=== PATIENT | male | born 1990 | race Two or more races ===

== ENCOUNTER 2025-02-15 05:29 | Emergency (ER) | payer BC, SELFPAY ==
[2025-02-15 05:30] VITALS: BMI 28.3
[2025-02-15 05:38] VITALS: BP 144/97; PULSE 68; RESP 18; TEMP 36.8; O2SAT 99
--- NOTE | 2025-02-15 05:46 | XR_ITS ---
Examination: CT abdomen and pelvis without contrast. Coronal 3-D reconstructions. Sagittal 2-D reconstructions. Date and time of exam:MRI 2024, 0642 hours Comparison December 22, 2020 INDICATIONS: Onset left-sided abdominal pain today CTDI: vol (mGy): 7.4 DLP: (mGycm): 414 Technique: Axial images of the abdomen have been obtained, 3 mm slice thickness Intravenous contrast material has not been administered. Low dose protocols were performed. One or more of the following dose reduction techniques were used; automated exposure control, adjustment of the mA and/or KV according to patient size, use of iterative reconstruction technique. Findings: No focal liver or splenic lesions No gallstones No pancreatic or adrenal mass 2 mm left renal calculus Minimal left hydronephrosis secondary to 2 mm mid left ureteral calculus image 121 Absent appendix No bowel obstruction No bladder mass The osseous structures are intact. Impression : Minimal left hydronephrosis secondary to 2 mm mid left ureteral calculus
--- NOTE | 2025-02-15 05:46 | XR_ITS ---
Examination: Testicular sonography complete TECHNIQUE: Grayscale sonographic images Smith, assessment arterial and portal venous outflow, Doppler spectral analysis color flow analysis Date and time: February 15, 2025, 0726 hours INDICATIONS: Onset left testicular pain and nausea beginning 4.5 hours ago FINDINGS: Right testis is 4.9 cm epididymis 16 mm 8 mm right epididymal cyst. Arterial flow to the testicle. No testicular mass Left testis 5.0 cm epididymis 17 mm Mild varicocele. Arterial flow to the testicle. No testicular Mass. Mild left hydrocele Bilateral testicular microlithiasis IMPRESSION: No testicular torsion or testicular Mass. Small benign right epididymal cyst. Mild left varicocele
--- NOTE | 2025-02-15 05:47 | PD.EDRME ---
Rapid Medical Screening Exam RME Arrival date/time: 02/15/25 05:29 35M with no significant PMH presents to ED with several hours of L flank/testicular pain and N/V. Chief Complaint: Abdominal Pain Vital signs: Vital Signs Temperature 98.2 F 02/15/25 05:38 Pulse Rate 68 02/15/25 05:38 Respiratory Rate 18 02/15/25 05:38 Blood Pressure 144/97 H 02/15/25 05:38 Pulse Oximetry (%) 99 02/15/25 05:38 Oxygen Delivery Method Room Air 02/15/25 05:38
[2025-02-15] MEDS: KETOROLAC INJ 60 MG/2 ML VIAL IM (06:02)
[2025-02-15] MEDS: ONDANSETRON ODT 4 MG TABRAP PO (06:02)
[2025-02-15 06:37] LABS: Collection Type, Urine Clean Catch
[2025-02-15 06:55] LABS: Basophils # (Auto) 0.1 Thou/mm3 (0.0-0.2); Basophils % (Auto) 0 % (0-2.5); Eosinophils # (Auto) 0.4 Thou/mm3 (0.0-0.5); Eosinophils % (Auto) 4 % (0-10); Hematocrit 47.0 % (41.0-53.0); Hemoglobin 17.2 g/dL (13.5-16.0); Immature Granulocytes Auto 0.06 Thou/mm3 (0.00-0.00); Lymphocytes # (Auto) 2.5 Thou/mm3 (1.0-4.8); Lymphocytes % (Auto) 22 % (10-50); Mean Corpuscular HGB Conc 36.6 g/dl (31.0-37.0); Mean Corpuscular Hemoglobin 31.6 pg (25.0-35.0); Mean Corpuscular Volume 86 fL (80-100); Monocytes # (Auto) 0.7 Thou/mm3 (0.0-0.8); Monocytes % (Auto) 7 % (0-12); Neutrophils # (Auto) 7.5 Thou/mm3 (1.8-7.7); Neutrophils % (Auto) 67 % (37-80); Nucleated Red Blood Cell # 0.00 Thou/mm3 (0.00-0.00); Nucleated Red Blood Cell % 0 /100 WBC (0); Platelet Count 240 Thou/mm3 (140-440); RDW Standard Deviation 39.3 fL (35.1-43.9); Red Blood Count 5.44 Miln/mm3 (4.50-5.90); White Blood Count 11.3 Thou/mm3 (3.8-10.6)
[2025-02-15 07:08] LABS: Alanine Aminotransferase 48 U/L (10-49); Albumin, Serum 4.8 gm/dL (3.5-5.0); Albumin/Globulin Ratio 1.7 (1.2-2.2); Alkaline Phosphatase 86 U/L (46-116); Anion Gap 11 (7-16); Aspartate Amino Transferase 29 U/L (0-34); BUN/Creatinine Ratio 10 Ratio (12-20); Bilirubin,Total 0.9 mg/dL (0.3-1.2); Blood Urea Nitrogen 13 mg/dL (9-23); Calcium 9.6 mg/dL (8.3-10.6); Calcium (Corrected) 9.6 mg/dL (8.5-10.1); Carbon Dioxide 23.6 mMol/L (20.0-31.0); Chloride 106 mMol/L (98-107); Creatinine (Component) 1.3 mg/dL (0.6-1.3); Estimated Creatinine Clearance 75.3 mL/min (>60); Globulin 2.9 gm/dL (2.3-3.5); Glucose 111 mg/dL (74-106); Lipase 27 U/L (12-53); Osmolality,Calculated 282 (275-295); Potassium 3.9 mMol/L (3.4-5.1); Sodium 141 mMol/L (136-145); Total Protein 7.7 gm/dL (5.7-8.2); eGFR > 60 See Note
[2025-02-15 07:10] LABS: Amorphous Crystals,Urine Present (Absent); Bilirubin,Urine Negative (Negative); Blood,Urine 3+ (Negative); Clarity,Urine Turbid (Clear/Hazy); Culture Indicated,Urine Not Indicated; Glucose, Urine Negative (Negative); Ketones,Urine Negative (Negative); Leukocyte Esterase,Urine Negative (Negative); Nitrite,Urine Negative (Negative); PH,Urine 6.0 (5.0-7.0); Protein,Urine 2+ (Neg - Trace); RBC,Urine 543 /hpf (0-3); Specific Gravity,Urine 1.039 (1.001-1.035); Squamous Epithelial Cell,Urine < 1 /hpf (0-5); Urobilinogen,Urine 3.0 mg/dL (0.0-1.0); WBC,Urine 5 /hpf (0-5)
[2025-02-15 07:23] LABS: Amphetamine/Methamp Scrn,U Negative (Negative); Barbiturate Screen,Urine Negative (Negative); Benzodiazepines Screen,Urine Negative (Negative); Benzoylecgonine Screen, Ur Negative (Negative); Budding Yeast,Urine Present; Color,Urine Lt Orange (Lt Yel-Yel); Fentanyl Screen,Urine Negative (Negative); Opiate Screen,Urine Negative (Negative); THC Screen,Urine Positive (Negative)
--- NOTE | 2025-02-15 07:39 | EDNOTE_ITS ---
ED Abdominal Pain RME/HPI General Chief Complaint: Abdominal Pain Stated complaint: LEFT FLANK PAIN Time seen by provider: 02/15/25 07:33 Arrival date/time: 02/15/25 05:29 35M with no significant PMH presents to ED with several hours of L flank/testicular pain and N/V. There are no other associated symptoms or aggravating factors no other modifying factors, patient denies taking medication before coming to ER today Limitations: no limitations RME / HPI RME / HPI narrative: 02/15/25 05:29 35M with no significant PMH presents to ED with several hours of L flank/testicular pain and N/V. Related Data Previous Rx's ?Medication ?Instructions ?Recorded docusate sodium 100 mg capsule 100 mg PO BID #40 caps 12/23/20 (Colace) hydrocodone 5 mg-acetaminophen 325 1 tab PO Q6H PRN pa in (scale score 12/23/20 mg tablet 7-10) #20 tabs ibuprofen 600 mg tablet 600 mg PO Q8H PRN pain (scal e 12/23/20 score 4-6) #15 tabs clindamycin HCl 300 mg capsule 300 mg PO Q6H #28 caps 01/23/23 ibuprofen 800 mg tablet 800 mg PO TID PRN pain #30 t abs 01/23/23 fluconazole 150 mg tablet 150 mg PO Q3D 2 doses #2 tab s 02/15/25 hydrocodone 5 mg-acetaminophen 325 1 tab PO BID PRN pa in #6 tabs 02/15/25 mg tablet ibuprofen 800 mg tablet 800 mg PO TID PRN pain #30 t abs 02/15/25 ondansetron 4 mg disintegrating 4 mg PO Q8H PRN nausea and 02/15/25 tablet vomiting #10 tabs Allergies Allergy/AdvReac Type Severity Reaction Status Date / Time No Known Allergies Allergy Verified 02/15/25 05:30 Review of Systems Review of Systems Systems Reviewed: All systems reviewed, normal except as documented Constitutional Constitutional: Reports system reviewed and no additional complaints, except as documented, Denies fever(s) and Denies headache(s) Eyes Eyes: Reports system reviewed and no additional complaints, except as documented and Denies blurry vision ENT Ears, Nose, Mouth, and Throat: Reports system reviewed and no additional complaints, except as documented, Denies headache(s), Denies nasal congestion and Denies nasal discharge Cardiovascular Cardiovascular: Reports system reviewed and no additional complaints, except as documented, Denies chest pain and Denies dyspnea Respiratory Respiratory: Reports system reviewed and no additional complaints, except as documented, Denies chest congestion, Denies cough and Denies dyspnea Gastrointestinal Gastrointestinal: Reports system reviewed and no additional complaints, except as documented, Reports abdominal pain, Reports nausea and Reports vomiting Integumentary/Breasts Skin/Breast: Reports system reviewed and no additional complaints, except as documented and Denies rash Neurologic Neurologic: Reports system reviewed and no additional complaints, except as documented, Reports as per HPI and Denies headache(s) Past Medical History Past Medical History NEUROLOGIC: Positive Seizures (Per pt, once as an infant. Not on any medications currently.) CARDIAC: Negative Congestive Heart Failure RESPIRATORY: Negative Chronic Obstructive Pulmonary Disease (COPD) or Asthma GENITOURINARY: Negative Renal Disease ENDOCRINE: Negative Diabetes Mellitus Type 1 or Diabetes Mellitus Type 2 OTHER HISTORY: Negative Blood Transfusions, Blood Transfusion Reaction or Anesthesia Reactions Social History SMOKING STATUS: Never smoker SUBSTANCE USE: does not use ED Exam General Limitations: Present no limitations General appearance: Present alert and in no apparent distress Head Head exam: Present atraumatic, normocephalic and normal inspection Eye Eye exam: Present normal appearance, PERRL and EOMI; Absent conjunctival injection ENT ENT exam: Present normal exam, normal oropharynx and mucous membranes moist Neck Neck exam: Present normal inspection, full ROM and trachea midline Chest Chest inspection: Present normal inspection and symmetric chest wall rise Respiratory Respiratory exam: Present normal lung sounds bilaterally; Absent respiratory distress Cardiovascular Cardiovascular exam: Present regular rate, normal rhythm and normal heart sounds Abdominal Exam Abdominal exam: Present soft and normal bowel sounds; Absent distention, tenderness, guarding, rebound, rigidity, Wright's sign or tenderness at McBurney's Point Abdominal tenderness: Absent RUQ or RLQ Extremities Exam Extremities exam: Present normal inspection and full ROM Back Exam Back exam: Present normal inspection and full ROM Neurological Exam Neurological exam: Present alert, oriented X3 and CN II-XII intact Psychiatric Psychiatric exam: Present normal affect and normal mood Skin Skin exam: Present warm, dry, intact and normal color Course Quality Measures none Orders Category Date Time Status CT abdomen pelvis wo con Stat Exams 02/15/25 05:46 Completed US testicular Stat Exams 02/15/25 05:46 Completed CBC Stat Lab 02/15/25 06:36 Completed CMP [Comprehensive Metabolic Panel] Stat Lab 02/15/25 06:36 Completed Drug Screen,Urine Stat Lab 02/15/25 06:03 Completed Lipase Stat Lab 02/15/25 06:36 Completed Urinalysis, C/S if Indicated Stat Lab 02/15/25 06:03 Completed Ketorolac Inj [Toradol Inj] Med 02/15/25 05:47 Discontinued 60 mg IM X1 ONE Ondansetron Odt [Zofran Odt] Med 02/15/25 05:47 Discontinued 4 mg PO X1 ONE Vital Signs Vital signs: Vital Signs Temperature 98.2 F 02/15/25 05:38 Pulse Rate 68 02/15/25 05:38 Respiratory Rate 18 02/15/25 05:38 Blood Pressure 144/97 H 02/15/25 05:38 Pulse Oximetry (%) 99 02/15/25 05:38 Oxygen Delivery Method Room Air 02/15/25 05:38 O2 saturation 99% room air within normal limits Abdominal Pain MDM MDM Narrative MDM Narrative:: 35M with no significant PMH presents to ED with several hours of L fl ank/testicular pain and N/V. There are no other associated symptoms or aggravating factors no other modifying factors, patient denies taking medication before coming to ER today I reviewed patient's lab work and imaging patient workup significant for kidney stone which is consistent with patient symptoms and presentation At time of discharge patient's symptoms have significantly improved Patient discharged home in no distress to follow-up with primary care doctor in the next 24 to 48 hours and for any worsening symptoms to return to the ER immediately Patient data External records reviewed:: [facility] previous records Clinical information provided by:: patient Social determinants that could affect healthcare access:: none Patient has the following chronic illnesses:: None How is presenting disease/condition affected by chronic disease/condition?: no chronic disease Evaluation data The following diagnostics were reviewed and interpreted by me:: lab results and radiology exam(s) Lab and/or radiology exams considered but not ordered:: Labs radiology obtained Interpretation Summary: Reviewed by me Medications / Prescriptions Medications or Prescriptions considered but not ordered:: Given Medication administrations:: Medication Administration History Discontinued Medications Ketorolac Tromethamine (Ketorolac Inj 60 Mg/2 Ml Vial) 60 mg IM X1 ONE Stop: 02/15/25 05:48 Last Admin: 02/15/25 06:02 Dose: 60 mg Documented By: QUINCY Ondansetron HCl (Ondansetron Odt 4 Mg Tabrap) 4 mg PO X1 ONE; Protocol Stop: 02/15/25 05:48 Last Admin: 02/15/25 06:02 Dose: 4 mg Documented By: QUINCY Given Consultations Consultation(s) initiated? (list below): No Diagnosis Differential diagnosis abdominal pain: abdominal pain, calculus of kidney, constipation, diverticulitis, pancreatitis and small bowel obstruction Most likely diagnosis given after review of the tests above:: Renal colic, yeast infection Admission Indicated Admission indicated?: not indicated Admission Request Was there a request for admission?: No Disposition Plan Disposition Plan: Discharge Discharge Attestation Discharge Attestation: The patient and all family members were given an opportunity to ask questions and understood the discharge instructions. Discharge instructions specifically effects, indications for sooner follow up or return to the emergency department, and the expected course of current diagnosis. Patient condition: Stable Discharge Plan Plan Patient Disposition: HOME (Self Care) Discharge Disposition comment: Stable Prescriptions/Referrals Prescriptions/Med Rec: New hydrocodone-acetaminophen 5-325 mg tablet 1 tab PO BID MDD 10 PRN (Reason: pain) Qty: 6 0RF ibuprofen 800 mg tablet 800 mg PO TID PRN (Reason: pain) Qty: 30 0RF fluconazole 150 mg tablet 150 mg PO Q3D Qty: 2 0RF Rx Instructions: may repeat second dose 72 hrs after first dose if symptoms persist ondansetron 4 mg tablet,disintegrating 4 mg PO Q8H PRN (Reason: nausea and vomiting) Qty: 10 0RF No Action hydrocodone-acetaminophen 5-325 mg tablet 1 tab PO Q6H MDD 4 PRN (Reason: pain (scale score 7-10)) Qty: 20 0RF docusate sodium [Colace] 100 mg capsule 100 mg PO BID Qty: 40 0RF ibuprofen 600 mg tablet 600 mg PO Q8H PRN (Reason: pain (scale score 4-6)) Qty: 15 0RF clindamycin HCl 300 mg capsule 300 mg PO Q6H Qty: 28 0RF ibuprofen 800 mg tablet 800 mg PO TID PRN (Reason: pain) Qty: 30 0RF Referrals: No Primary/Family,Physician [Primary Care Provider] - 02/16/25 Problem List Clinical Impression: Renal colic Patient/Caregiver Discharge Instructions Education Materials: ED Kidney Stone w/ Colic Additional Instructions: Please follow up with your primary care doctor in the next 24-48hrs for any worsening symptoms return here immediately Print Language: Ukrainian Stand Alone Forms: Bea Award Info., Work/School Release, Patient Portal Info Letter PA/EXHIBIT DESIGNER Supervising Physician PA/EXHIBIT DESIGNER Supervising Physician: Dr. [email or web address]
== END 2025-02-15 08:09 | disposition home or self-care (01) ==
PROVIDERS: Physician Assistant; Emergency Provider Family Medicine
DX: N20.0 Calculus of kidney (principal)
CPT/HCPCS: 36415; 74176; 76870; 80053; 80307; 81001; 83690; 85025; 96372; 99283; J1885; Q0162